=== PATIENT | female | born 1995 | race Caucasian/White ===

== ENCOUNTER 2024-11-01 10:40 | Emergency (ER) | payer OTHER ==
[~2024-11-01] VITALS: Ht 162.6 cm; Wt 56.8 kg
[2024-11-01 11:02] VITALS: TEMP 98.3
[2024-11-01 11:44] LABS: COVID AG,FIA SOURCE NASAL SWAB
[2024-11-01 12:06] LABS: SARS-COV2 (COVID) ANTIGEN,FIA Negative (Negative)
[2024-11-01 12:07] LABS: INFLUENZA TYPE A NEGATIVE FOR TYPE A (NEGATIVE); INFLUENZA TYPE B NEGATIVE FOR TYPE B (NEGATIVE)
[2024-11-01 13:42] VITALS: BP 112/72
[2024-11-01] MEDS: ALBUTEROL SULFATE HFA 90 MCG/PUFF 8 GM INHALER IH ONE (14:16)
[2024-11-01] MEDS: PredniSONE 20 MG TABLET PO ONE (14:26)
[2024-11-01] MEDS ORDERED: PRED-554 PO (14:47)
[2024-11-01] MEDS ORDERED: BENZ-227 PO (14:50)
[2024-11-01 15:00] VITALS: PULSE 77; PULSE 88; RESP 16; O2SAT 98
== END 2024-11-01 15:33 | disposition home or self-care (01) ==
LOC: EMS 10:40
DX: J11.1 Influenza due to unidentified influenza virus with other respiratory manifestations (principal); J45.901 Unspecified asthma with (acute) exacerbation; Z20.822 Contact with and (suspected) exposure to COVID-19
CPT/HCPCS: 99284; 71045; 87426; 87804; 94640; J7512; J3535